=== PATIENT | male | born 1970 | race Hispanic/Latino ===

== ENCOUNTER → 2017-06-12 | Outpatient (CLI) | payer OTHER ==
--- NOTE | 2017-06-12 09:44 | Diagnostic Imaging Report ---
PROCEDURE: X-RAY CHEST, TWO VIEWS COMPARISON: None. INDICATIONS: BRONCHITIS FINDINGS: LUNGS: No consolidations or edema. Lungs are mildly hyperexpanded. PLEURA: No effusions or pneumothorax. HEART \T\ MEDIASTINUM: The heart is within normal size-limits. BONES \T\ SOFT TISSUES: No acute findings. CONCLUSION: No acute thoracic abnormality. Franklin Kapoor D.O. Dictated by: Franklin Kapoor D.O. on 06/12/2017 at 9:44 Electronically approved by: Franklin Kapoor D.O. on 06/12/2017 at 9:44
== END ==
LOC: RAD 08:55
PROVIDERS: ATTEND Family Medicine
DX: J40 Bronchitis, not specified as acute or chronic (principal); Z72.0 Tobacco use
CPT/HCPCS: 71046